=== PATIENT | male | born 1965 | race Caucasian/White ===

== ENCOUNTER 2016-10-24 22:30 | Emergency (ER) | payer BC ==
--- NOTE | ~2016-10-24 | CR93 ---
[facility] A Service [facility] RADIOLOGY TEXT RESULTS PATIENT: XIOMARA WATSON LOCATION: [facility] : 67 UNIT #: [id number] AGE: [address]: Raciel Sue MD SEX: M ORDER DR: [id number] [facility] [address] [place], [place] [address] [id number] E MR#: [id number] Acc #: [id number] NAME: XIOMARA WATSON. : 1965 SEX: M STUDY DATE/TIME: 10/24/2016 22:21 UNIT: [facility] ROOM: STUDY DESCRIPTION: CR Elbow Min 3 Views Lt Attending Physician: Raciel Sue M.D. Ordering Physician: Raciel Sue M.D. Primary Care Physician: No Primary Care Physician MEDICAL IMAGING REPORT This report is preliminary unless electronic signature is present EXAM Left elbow series 10/24/2016. HISTORY 51-year-old male in the ED complaining of 2-day history of left elbow pain, redness and swelling. TECHNIQUE 3-view left elbow series. FINDINGS The examination shows marked soft tissue swelling over the posterior aspect of the elbow. No visible soft tissue gas or radiopaque soft tissue foreign body. No fracture or other osseous abnormality. No visible joint effusion. The findings suggest potential olecranon bursitis or similar inflammatory process posterior to the elbow. Correlate clinically. IMPRESSION Marked posterior soft tissue swelling. Correlate clinically for olecranon bursitis. Dictated by... Taran Carroll M.D. THIS IS AN ELECTRONICALLY VERIFIED REPORT Taran Carroll M.D. at 10/25/2016 9:56 PM RGW/mayco TD: 10/25/2016 11:52 JOB #: [id number] [facility] A Service [facility] RADIOLOGY TEXT RESULTS PATIENT: XIOMARA WATSON LOCATION: [facility] : 67 UNIT #: [id number] AGE: [address]: Raciel Sue MD SEX: M ORDER DR: MEDICAL IMAGING REPORT COPY
[~2016-10-24 22:30] MED LIST: DUONEBS; FLEXERIL10 M1 PO; GLUCOPHAGE500 M1 PO; LEVAQUIN750 M1 PO; LEVEMIR FL100 UNIT/1 SUBQ; LORTAB 5/500 TA1 TA1 PO; NOVOLOG100 U/M2 SUBQ; PREDNISONE10 MG/DOSE; SYMBICORT IH
[2016-10-24 22:53] LABS: BASOPHIL% 0.5 % (0-2.5); EOSINOPHIL# 0.2 X10e3 (0-0.7); EOSINOPHIL% 3.2 % (0.0-7.0); HEMATOCRIT 33.1 % (38.0-50.0); LYMPHOCYTE# 1.4 X10e3 (1.0-3.5); LYMPHOCYTE% 21.7 % (17.0-45.0); MEAN CELL VOLUME 81.6 FL (83-96); MEAN CORPUSCULAR HEMOGLOBIN 27.2 PG (28-34); MEAN CORPUSCULAR HGB CONC 33.3 g/dL (30-36); MEAN PLATELET VOLUME 7.9 FL (6.5-11.5); MONOCYTE# 0.6 X10e3 (0-1.0); MONOCYTE% 9.1 % (3.0-12.0); NEUTROPHIL# 4.3 X10e3 (1.5-7.1); NEUTROPHIL% 65.5 % (40-75); PLATELET COUNT 211 X10e3 (140-420); RED BLOOD COUNT 4.05 X10e (3.90-5.60); RED CELL DISTRIBUTION WIDTH 12.9 % (11.0-15.5); WHITE BLOOD COUNT 6.5 X10e3 (4.0-10.5)
[2016-10-24 22:56] LABS: DIFF IND NO
[2016-10-24 23:34] LABS: ALBUMIN SERUM 3.4 g/dL (3.5-5.0); ALKALINE PHOSPHATASE 61 U/L (32-92); ALT (SGPT) 20 U/L (10-40); AST (SGOT) 16 U/L (10-42); BILIRUBIN, DIRECT 0.1 mg/dL (0.0-0.2); BILIRUBIN,INDIRECT 0.8 mg/dL (0.0-0.9); BILIRUBIN,TOTAL 0.9 mg/dL (0.2-2.0); BLOOD UREA NITROGEN 15 mg/dL (9-23); CALCIUM SERUM 8.7 mg/dL (8.4-10.2); CARBON DIOXIDE 27 mmol/L (22-31); CHLORIDE 99 mmol/L (100-111); CREATININE SERUM 0.5 mg/dL (0.6-1.4); GLOM FILT RATE Estimated ABOVE60 mL/min (>60); GLUCOSE FASTING 359 mg/dL (70-110); POTASSIUM 4.1 mmol/L (3.5-5.1); PROTEIN TOTAL SERUM 6.9 g/dL (6.0-8.3); SODIUM 132 mmol/L (135-145)
== END 2016-10-25 02:10 | disposition left against medical advice (07) ==
LOC: CED 22:30
PROVIDERS: Emergency Medicine
DX: M00.822 Arthritis due to other bacteria, left elbow (principal); E11.9 Type 2 diabetes mellitus without complications; Z79.899 Other long term (current) drug therapy
CPT/HCPCS: 36415; 73080; 80048; 80076; 84550; 85025; 85652; 86140; 96365; 99285; J0696; J3370

== ENCOUNTER 2017-02-01 21:14 | Emergency (ER) | payer BC ==
--- NOTE | ~2017-02-01 | CT2 ---
[facility] A Service of [facility] RADIOLOGY TEXT RESULTS PATIENT: XIOMARA WATSON LOCATION: [facility] : 67 UNIT #: [id number] AGE: [address]: SINCERE DUMONT APRN SEX: M ORDER DR: [id number] [address] [address] [id number] MR#: [id number] Acc #: [id number] NAME: XIOMARA WATSON. : 1965 SEX: M STUDY DATE/TIME: 02/02/2017 2:36 UNIT: [facility] ROOM: STUDY DESCRIPTION: CT Abd and Pelv W Cont Attending Physician: Sincere Dumont Aprn Ordering Physician: Sincere Dumont Aprn Primary Care Physician: No Primary Care Physician MEDICAL IMAGING REPORT This report is preliminary unless electronic signature is present EXAM CT abdomen and pelvis with contrast. INDICATIONS Generalized abdominal pain for the past 2 weeks. PROCEDURE Contrast-enhanced CT abdomen and pelvis. This CT exam was performed with one or more of the following radiation dose reduction techniques: automatic exposure control, adjustment of mA and/or kV according to patient size, and iterative reconstruction. COMPARISON None. FINDINGS Abdomen with contrast: Included lung bases are clear. The liver, spleen, kidneys, adrenal glands, pancreas and gallbladder are unremarkable. The bowel loops are nondilated. Moderate colonic stool burden. There is abnormal thickening and inflammatory change in the sigmoid colon. No evidence for an abscess. Appendix is normal. Pelvis with contrast: No pelvic mass or fluid. No aggressive appearing bone lesion. IMPRESSION 1. Focal colitis in the mid sigmoid colon. 2. Moderate to moderately large colonic stool burden. 3. No evidence for an organized abscess. Dictated by... Alex Frost M.D. [facility] A Service of [facility] RADIOLOGY TEXT RESULTS PATIENT: XIOMARA WATSON LOCATION: [facility] : 67 UNIT #: [id number] AGE: [address]: SINCERE DUMONT APRN SEX: M ORDER DR: THIS IS AN ELECTRONICALLY VERIFIED REPORT Alex Frost M.D. at 02/02/2017 10:29 PM Yovany TD: 02/02/2017 08:40 JOB #: [id number] MEDICAL IMAGING REPORT Page 1 of 1 COPY
[2017-02-01 23:33] LABS: BASOPHIL% 0.6 % (0-2.5); EOSINOPHIL# 0.3 X10e3 (0-0.7); EOSINOPHIL% 3.6 % (0.0-7.0); HEMATOCRIT 38.2 % (38.0-50.0); HEMOGLOBIN 12.7 gm/dL (13.0-16.0); LYMPHOCYTE# 2.1 X10e3 (1.0-3.5); LYMPHOCYTE% 26.6 % (17.0-45.0); MEAN CELL VOLUME 82.2 FL (83-96); MEAN CORPUSCULAR HEMOGLOBIN 27.3 PG (28-34); MEAN CORPUSCULAR HGB CONC 33.3 g/dL (30-36); MEAN PLATELET VOLUME 7.7 FL (6.5-11.5); MONOCYTE# 0.6 X10e3 (0-1.0); MONOCYTE% 7.4 % (3.0-12.0); NEUTROPHIL# 4.8 X10e3 (1.5-7.1); NEUTROPHIL% 61.8 % (40-75); PLATELET COUNT 225 X10e3 (140-420); RED BLOOD COUNT 4.65 X10e (3.90-5.60); RED CELL DISTRIBUTION WIDTH 14.1 % (11.0-15.5); WHITE BLOOD COUNT 7.8 X10e3 (4.0-10.5)
[2017-02-01 23:38] LABS: DIFF IND NO
[2017-02-01 23:58] LABS: BILIRUBIN, DIRECT 0.1 mg/dL (0.0-0.2); BILIRUBIN,INDIRECT 0.7 mg/dL (0.0-0.9); BILIRUBIN,TOTAL 0.8 mg/dL (0.2-2.0); BUN/CREATININE RATIO 21.42; CREATININE SERUM 0.7 mg/dL (0.6-1.4); GLOM FILT RATE Estimated 109.3 mL/min (>60); POTASSIUM 4.2 mmol/L (3.5-5.1)
== END 2017-02-02 05:40 | disposition home or self-care (01) ==
LOC: CED 21:14
PROVIDERS: Emergency Medicine
DX: K52.9 Noninfective gastroenteritis and colitis, unspecified (principal); Z98.890 Other specified postprocedural states; F17.210 Nicotine dependence, cigarettes, uncomplicated
CPT/HCPCS: 36415; 74177; 80048; 80076; 82150; 83690; 85025; 96360; 99284; Q9967